=== PATIENT | male | born 1950 | race Caucasian/White ===

== ENCOUNTER 2018-05-09 14:27 | Emergency (ER) | payer SELFPAY ==
[~2018-05-09] VITALS: Ht 233.7 cm; Wt 80.0 kg
[2018-05-09 14:37] VITALS: BP 132/79
== END 2018-05-09 17:44 | disposition left against medical advice (07) ==
LOC: ER 14:27
DX: Z53.21 Procedure and treatment not carried out due to patient leaving prior to being seen by health care provider (principal)